=== PATIENT | male | born 1970 | race Caucasian/White ===

== ENCOUNTER 2017-01-06 23:48 | Emergency (ER) | payer BC, OTHER ==
[~2017-01-06] VITALS: Ht 182.9 cm; Wt 109.5 kg
[~2017-01-06 23:48] MED LIST: BEN25 PO; ELIM TOP
[2017-01-06 23:55] VITALS: Ht 182.9 cm; Wt 109.5 kg
--- NOTE | 2017-01-07 02:43 | ERD ---
ER Documentation Chief Complaint Date/Time DATE: 01/07/17 TIME: 02:41 Chief Complaint left foot pain HPI 46-year-old male presents here in emergency department for complaints of left foot pain after playing karate today. Patient describes the pain as throbbing pain, 6/10 scale, is worse upon walking. Patient did not take any medications to help with symptoms, patient is complaining of swelling on affected area. Patient denies any numbness or tingling. Patient denies any deformity. ROS All systems reviewed and are negative except as per history of present illness. Medications Home Meds Active Scripts Diphenhydramine Hcl* (Benadryl*) 25 Mg Cap, 25 MG PO Q6, #30 CAP Prov:CHRIS TAVERA PA-C 05/13/15 Permethrin* (Elimite*) 5% Cr, 1 APPLIC TOP ONCE, #60 TUB Prov:CHRIS TAVERA PA-C 05/13/15 Allergies Allergies: Coded Allergies: No Known Allergy (Unverified , 01/06/17) PMhx/Soc Medical and Surgical Hx: pt denies Medical Hx, pt denies Surgical Hx History of Surgery: No Anesthesia Reaction: No Hx Neurological Disorder: No Hx Respiratory Disorders: No Hx Cardiac Disorders: No Hx Psychiatric Problems: No Hx Miscellaneous Medical Probl: No Hx Alcohol Use: No Hx Substance Use: No Hx Tobacco Use: No Smoking Status: Never smoker FmHx Family History: No coronary disease, No diabetes, No other Physical Exam Vitals Vital Signs Date Time Temp Pulse Resp B/P Pulse Ox O2 Delivery O2 Flow Rate FiO2 01/06/17 23:55 97.6 101 20 166/90 100 Physical Exam GENERAL: The patient is well developed and appropriate for usual state of health, in no apparent distress. CHEST: Clear to auscultation bilaterally. There are no rales, wheezes or rhonchi. HEART: Regular rate and rhythm. No murmurs, clicks, rubs or gallops. No S3 or S4. ABDOMEN: Soft, nontender and nondistended. Good bowel sounds. No rebound or guarding. No gross peritonitis. No gross organomegaly or masses. No Roman sign or McBurney point tenderness. BACK: No midline or flank tenderness. EXTREMITIES: Some swelling in the dorsal aspect of the left foot, with tenderness on palpation. Able to do full range of motion without any restriction. Equal pulses bilaterally. Full range of motion of other joints of the body. Grossly neurovascularly intact. NEURO: Alert and oriented. Cranial nerves 2-12 intact. Motor strength in all 4 extremities with 5/5 strength. Sensation grossly intact. Normal speech and gait. SKIN: There is no apparent rash or petechia. The skin is warm and dry. HEMATOLOGIC AND LYMPHATIC: There is no evidence of excessive bruising or lymphedema. No gross cervical, axillary, or inguinal lymphadenopathy. Results 24 hrs PROCEDURE: XR Left Foot. CLINICAL INDICATION: Left foot pain. TECHNIQUE: AP, lateral and oblique views of the left foot was obtained. The images were reviewed on a PACS workstation. COMPARISON: None. FINDINGS: Reference marker is directed towards the lateral aspect of the left foot at the fifth metatarsal, without evident underlying radiographic abnormality. On the AP view there is a small calcific density just lateral to the anterior calcaneus. There may be a small osseous defect at the anterior lateral calcaneus. Otherwise, this is not strongly convincing for a fracture, however, a small chip fracture is included in the differential considerations. If there is concern for a small chip fracture at the anterior calcaneus consider CT correlation. The bones of the foot otherwise appear intact, with no other definite evidence of fracture, dislocation, or subluxation. The joint spaces are preserved. The bone mineralization is normal. No significant soft tissue swelling is seen. Plantar and posterior dorsal calcaneal enthesophytes. IMPRESSION: 1. Small osseous density is seen just lateral to the anterior calcaneus on a single view. 2. Differential considerations include a small chip fracture at the anterior calcaneus. 3. If there is concern for a small chip fracture at the anterior calcaneus consider CT correlation. 4. Otherwise, there is no definite acute fracture. RPTAT: [facility] Physician Blas Date Time Electronically viewed and signed by Physician Blas on 01/07/2017 03:24 RS/ CC: TA CHAVIRA NP After receiving patients xray report, a posterior short ankle splint was applied on the patients left foot. After application of the splint, patient has intact sensation and circulation on distal area of the affected joint. Patient does not complain of numbness or tingling after application of the splint. Patient tolerated procedure well. Crutches was given to use afterwards. Procedures/MDM Medical Decision Making: Patient's pain is most likely consistent with a contusion or a sprain, can be also a chip fracture of the calcaneus. There is no suspicion for neurovascular compromise. Patient has intact sensation and circulation of the affected extremity. There is low suspicion for septic arthritis. Patient does not have any fever. Radiology exams of the affected area does not show any dislocation. Disposition: Home. Patient is given prescription for ibuprofen for pain. Patient was advised to elevate the affected area and apply ice on affected area. Patient was advised that if symptoms are worse, numbness, tingling, high fever, unable to move joint, worsening symptoms, to return to emergency department immediately. Otherwise, patient is advised to follow up with the primary care doctor in 5-7 days for reevaluation of symptoms. Keep splint in place, see orthopedic doctor within 3-5 days. Departure Diagnosis: Primary Impression: Foot pain Laterality: left Qualified Code: M79.672 - Left foot pain Condition: Stable Patient Instructions: Fracture, Foot Additional Instructions: Patient is given prescription for ibuprofen for pain. Patient was advised to elevate the affected area and apply ice on affected area. Patient was advised that if symptoms are worse, numbness, tingling, high fever, unable to move joint , worsening symptoms, to return to emergency department immediately. Otherwise, patient is advised to follow up with the primary care doctor in 5-7 days for reevaluation of symptoms. Keep splint in place, see orthopedic doctor within 3- 5 days. TA CHAVIRA NP Jan 07, 2017 02:43
--- NOTE | 2017-01-07 03:24 | RADRPT ---
PROCEDURE: XR Left Foot. CLINICAL INDICATION: Left foot pain. TECHNIQUE: AP, lateral and oblique views of the left foot was obtained. The images were reviewed on a PACS workstation. COMPARISON: None. FINDINGS: Reference marker is directed towards the lateral aspect of the left foot at the fifth metatarsal, wi thout evident underlying radiographic abnormality. On the AP view there is a small calcific density just lateral to the anterior calcaneus. There may be a small osseous defect at the anterior lateral calcaneus. Otherwise, this is not strongly convin cing for a fracture, however, a small chip fracture is included in the differential considerations. If there is concern for a small chip fracture at the anterior calcaneus consider CT correlation. The bones of the foot otherwise appear intact, with no other definite evidence of fracture, dislocat ion, or subluxation. The joint spaces are preserved. The bone mineralization is normal. No significant soft tissue swelling is seen. Plantar and posterior dorsal calcaneal enthesophytes. IMPRESSION: 1. Small osseous density is seen just lateral to the anterior calcaneus on a single view. 2. Differential considerations include a small chip fracture at the anterior calcaneus. 3. If there is concern for a small chip fracture at the anterior calcaneus consider CT correlation. 4. Otherwise, there is no definite acute fracture. RPTAT: [facility] Physician Blas Date Time Electronically viewed and signed by Physician Blas on 01/07/2017 03:24 RS/
[2017-01-07] MEDS ORDERED: IBUP-1542 PO (03:36)
[2017-01-07 04:00] VITALS: BP 160/57; PULSE 80; RESP 20; TEMP 97.9
== END 2017-01-07 04:09 | disposition home or self-care (01) ==
LOC: FTE 23:48
DX: S99.922A Unspecified injury of left foot, initial encounter (principal); X58.XXXA Exposure to other specified factors, initial encounter; Y92.9 Unspecified place or not applicable

== ENCOUNTER 2017-09-19 08:32 | Emergency (ER) | payer BC ==
[~2017-09-19] VITALS: Ht 175.3 cm; Wt 90.0 kg
[~2017-09-19 08:32] MED LIST changes: +IBUP-1542 PO
[2017-09-19 08:34] VITALS: Ht 175.3 cm; Wt 90.0 kg
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
[2017-09-19] MEDS ORDERED: IBUPROFEN 600 MG TAB PO ONE (09:00)
[2017-09-19] MEDS ORDERED: HYDROCODONE/APAP (5/325) TAB PO ONE (09:00)
[2017-09-19] MEDS ORDERED: HYDR-906 PO (11:12)
[2017-09-19] MEDS ORDERED: IBUP-1542 PO (11:12)
--- NOTE | 2017-09-19 16:51 | RADRPT ---
PROCEDURE: XR Ankle. CLINICAL INDICATION: Left ankle pain TECHNIQUE: 3 views of the left ankle were performed. COMPARISON: None. FINDINGS: There is an acute minimally-displaced obliquely oriented distal fibular fracture at the level of the ankle mortise. There is a questionable small nondisplaced posterior malleolar fracture, age indeterminate. 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 There is moderate bimalleolar soft tissue swelling and there is moderate calcaneal enthesopathy. IMPRESSION: 1. Acute minimally-displaced obliquely oriented distal fibular fracture. 2. Questionable age indeterminate nondisplaced small posterior malleolar fracture. 3. Moderate bimalleolar soft tissue swelling. RPTAT: [facility] .Nilay Beltrán MD, Date Time Electronically viewed and signed by .Nilay Beltrán MD, on 09/19/2017 09:38 .K/
--- NOTE | 2017-09-19 16:51 | RADRPT ---
PROCEDURE: XR Foot 3 Views. CLINICAL INDICATION: Left foot pain and trauma. TECHNIQUE: AP, oblique and lateral views of the left foot were obtained. The images were reviewed on a PACS workstation. COMPARISON: None. FINDINGS: Subtle, obliquely oriented fracture through the lateral malleolus is best seen on the oblique and la teral images. Vertically oriented, potential avulsion fracture of the posterior malleolus is noted. The remaining osseous structures appear intact. No destructive bony lesions are identified. Intero sseous spaces are normal. Small plantar calcaneal and Achilles insertion heel spurs are seen. Soft t issues surrounding the foot appear unremarkable. IMPRESSION: Lateral malleolus fracture and potential posterior malleolus fracture. Further characterization with a dedicated left ankle series is recommended. Plantar calcaneal and Achilles insertion heel spurs. If there is high clinical suspicion for additional traumatic injury, further evaluation with CT shou ld be considered. RPTAT: AA .Chris Lowery MD, Date Time Electronically viewed and signed by .Chris Lowery MD, on 09/19/2017 09:34 .P/
== END 2017-09-19 11:43 | disposition home or self-care (01) ==
LOC: FTE 08:32
DX: S82.63XA Displaced fracture of lateral malleolus of unspecified fibula, initial encounter for closed fracture (principal); V89.2XXA Person injured in unspecified motor-vehicle accident, traffic, initial encounter
CPT/HCPCS: 73610; 73630; Z7502; Z7610